=== PATIENT | female | born 1950 | race Two or more races ===

== ENCOUNTER 2023-10-22 03:48 | Observation (INO) | payer OTHER, SELFPAY ==
[2023-10-21 21:49] VITALS: BP 144/66
[2023-10-21 22:10] LABS: % Basophils 0.5 % (0-2); % Eosinophils 0.3 % (0-6); % Immature Granulocytes 0.3 % (0-0.5); % Lymphocytes 22.3 % (20.5-51.1); % Monocytes 6.4 % (1.7-9.3); % Neutrophils 70.2 % (42.2-75.2); Absolute Lymphocytes 1.3 10^3/uL (1.2-3.4); Absolute Monocytes 0.4 10^3/uL (0.1-0.6); Absolute Neutrophils 4.2 10^3/uL (1.4-6.5); Hematocrit 34.6 % (37.0-47.0); Hemoglobin 12.2 g/dL (12.0-16.0); Mean Corp Hgb Conc. 35.3 g/dL (33.0-37.0); Mean Corpuscular Hgb 31.5 pg (27.0-31.0); Mean Corpuscular Volume 89.4 fL (81.0-99.0); Nucleated Red Blood Cells % 0 %; Platelet Count 264 10^3/uL (130-400); Red Blood Cell Count 3.87 10^6/uL (4.20-5.40); Red Cell Dist. Width 12.7 % (11.5-14.5); White Blood Cell Count 5.9 10^3/uL (4.8-10.8)
[2023-10-21 22:25] LABS: ALT (SGPT) 15 U/L (0-35); AST (SGOT) 26 U/L (14-36); Albumin 2.9 g/dl (3.5-5.0); Alkaline Phosphatase 72 U/L (38-126); Blood Urea Nitrogen 22 mg/dl (7-17); Calcium 9.9 mg/dl (8.4-10.2); Carbon Dioxide 18 mmol/L (22-30); Chloride 104 mmol/L (98-107); Glucose 175 mg/dl (70-99); Lipase 86 U/L (23-300); Potassium 3.7 mmol/L (3.5-5.1); Sodium 133 mmol/L (135-145); Total Bilirubin 0.8 mg/dl (0.2-1.3); Total Protein 7.1 g/dl (6.3-8.2); eGFR > 60.00
[2023-10-22] VITALS (16 sets, daily range): BP systolic 120–153; BP diastolic 57–76; PULSE 65–82; BMI 26.5
--- NOTE | 2023-10-22 01:00 | ED.GENMED ---
History of Present Illness
<VASQUEZ العلي (Lenka) - Last Filed: 10/22/23 01:39>
General
Chief Complaint: Dizziness
Source: patient and family (daughter)
Exam Limitations: none
Time Seen by Provider: 10/22/23 00:57
Nursing documentation reviewed up to this point in time: agreed with
History of Present Illness
History of Present Illness:
Pt is a 73 yo [place]orese-speaking female with PMHx of vertigo (unclear cause, was managed in [facility]), HTN, and COPD who presents to the ED with constant vertigo and N/V x 1 day (onset evening of 10/19). Per daughter interpreting, pt suddenly
developed unprovoked dizziness last night, worse with movement and sitting, improved with laying. She states it feels like the world is spinning around her. The dizziness is provoked by opening her eyes and moving her head, improved with eyes
closed. She endorses balance issues and requires assistance with ambulation today. Normally, she ambulates on her own and goes on walks every morning. She took her BP last night at onset of symptoms, which showed HTN of 140s systolic, pt normally is
well-controlled with amlodipine. She took 2 amlodipine yesterday and today. Additionally, she has had nausea and NBNB emesis, vomiting every time she moves from a laying position. Admits to mild diffuse abdominal discomfort and some mild dyspnea x 1
day. Denies hearing loss, tinnitus, facial numbness, chest pain, constipation, diarrhea, changes to urinary habits, URI sx, fevers, chills. No illness in the past month. Only possible sick contacts are her children who had viral illness 3 weeks ago.
Upon questioning, she said she had 'a few' 30 minute episodes of dizziness over the past week that resolved without intervention.
Her last episode of severe vertigo was summer 2018 in [facility], provoked by gardening. She is unsure what the ultimate diagnosis was. She was treated with 'some pills and a few shots'.
Past History
<KristyVASQUEZ Mccollum (Lenka) - Last Filed: 10/22/23 01:39>
Past History
ED Past Medical History: HTN and Other (hx of vertigo 2019 (when in - unsure of official diagnosis))
Social History
Living: with family
Phy Exam
<VASQUEZ العلي (Lenka) - Last Filed: 10/22/23 01:39>
General Physical Exam
General Presentation: moderate distress
General age: appears stated age
General Skin: warm and dry
General Habitus: normal and elderly
General Mental: alert
General Hydration: appears well hydrated
ENT Exam
ENT Exam: EOMI and TM's normal
Eye Exam
Eye Exam: PERRL and EOMI (no nystagmus)
Cardiovascular Exam
Cardiovascular Exam: regular rate/rhythm
Pulmonary Exam
Pulmonary Exam: lungs clear and no respiratory distress
Neurological Exam
Neurological Exam: alert and other ([id number] testing intact)
Course
<VASQUEZ العلي (Lenka) - Last Filed: 10/22/23 01:39>
Orders/Labs/Results
Orders:
Orders
10/21/23 21:54
EKG [Electrocardiogram (*1)] Urgent
Reason for Study: Vertigo / Dizzy
EKG- Treatment ONCE
10/21/23 22:05
CBC/With Diff [Complete Blood Count/With Diff] Urgent
CMP [Comprehensive Metabolic Panel] Urgent
Lipase Urgent
10/22/23 00:[address] [CT Head W/o Iv Contrast] Urgent
Comment:
Reason For Exam: dizziness
10/22/23 01:34
0.9% Sodium Chloride 500 ml [Nss] 500 ml IV BOLUS
Dexamethasone Sod Phosphate [Decadron] 10 mg IV NOW STA
Ondansetron Injectable [Zofran] 4 mg IV NOW STA
diazePAM [Valium Injection] 2 mg IV NOW STA
Abnormal Lab Results
10/21/23
22:05
RBC 3.87 L 10^6/uL
(4.20-5.40)
Hct 34.6 L %
(37.0-47.0)
MCH 31.5 H pg
(27.0-31.0)
Sodium 133 L mmol/L
(135-145)
Carbon Dioxide 18 L mmol/L
(22-30)
BUN 22 H mg/dl
(7-17)
Glucose 175 H mg/dl
(70-99)
Albumin 2.9 L g/dl
(3.5-5.0)
10/21/23 22:05
10/21/23 22:05
Vital Signs
Initial and Last Documented VS:
Initial Vital Signs
Temp Pulse Resp BP Pulse Ox
97.9 F 67 18 144/66 99
10/21/23 21:49 10/21/23 21:49 10/21/23 21:49 10/21/23 21:49 10/21/23 21:49
Last Documented Vital Signs
Temp Pulse Resp BP Pulse Ox
97.9 F 67 18 120/57 99
10/21/23 21:49 10/22/23 02:00 10/22/23 02:00 10/22/23 02:00 10/22/23 02:00
<Sukhwinder Montano, DO - Last Filed: 10/22/23 02:45>
Orders/Labs/Results
Orders:
Orders
10/21/23 21:54
EKG [Electrocardiogram (*1)] Urgent
Reason for Study: Vertigo / Dizzy
EKG- Treatment ONCE
10/21/23 22:05
CBC/With Diff [Complete Blood Count/With Diff] Urgent
CMP [Comprehensive Metabolic Panel] Urgent
Lipase Urgent
10/22/23 00:[address] [CT Head W/o Iv Contrast] Urgent
Comment:
Reason For Exam: dizziness
10/22/23 01:34
0.9% Sodium Chloride 500 ml [Nss] 500 ml IV BOLUS
Dexamethasone Sod Phosphate [Decadron] 10 mg IV NOW STA
Ondansetron Injectable [Zofran] 4 mg IV NOW STA
diazePAM [Valium Injection] 2 mg IV NOW STA
Abnormal Lab Results
10/21/23
22:05
RBC 3.87 L 10^6/uL
(4.20-5.40)
Hct 34.6 L %
(37.0-47.0)
MCH 31.5 H pg
(27.0-31.0)
Sodium 133 L mmol/L
(135-145)
Carbon Dioxide 18 L mmol/L
(22-30)
BUN 22 H mg/dl
(7-17)
Glucose 175 H mg/dl
(70-99)
Albumin 2.9 L g/dl
(3.5-5.0)
10/21/23 22:05
10/21/23 22:05
Vital Signs
Initial and Last Documented VS:
Initial Vital Signs
Temp Pulse Resp BP Pulse Ox
97.9 F 67 18 144/66 99
10/21/23 21:49 10/21/23 21:49 10/21/23 21:49 10/21/23 21:49 10/21/23 21:49
Last Documented Vital Signs
Temp Pulse Resp BP Pulse Ox
97.9 F 67 18 120/57 99
10/21/23 21:49 10/22/23 02:00 10/22/23 02:00 10/22/23 02:00 10/22/23 02:00
<Kristy Fernandez) VASQUEZ Salgado - Last Filed: 10/22/23 01:39>
MDM/Problems Addressed
Differential Diagnosis Includes:
DDx: labyrinthitis vs posterior stroke vs BPPV
Given pts symptoms of vertigo (world spinning around her), N/V with any movement, imbalance x over 24 hours, there is some concern for posterior stroke. Finger to nose testing is normal. No known viral illness, but hx of recent exposure 3 weeks ago,
so labyrinthitis could be more likely.
CT head - pending
Will plan to give valium and zofran and reassess for symptoms.
Chronic conditions affecting care: HTN
<Kristy Fernandez) VASQUEZ Salgado - Last Filed: 10/22/23 01:39>
*Critical Care Note
Total Time (30-74mins, 75-104mins- exclusive of procedures): Not Applicable
ED Attending Note
<VASQUEZ العلي (Lenka) - Last Filed: 10/22/23 01:39>
-
Portions of this chart may have been created with voice recognition software.� Occasional wrong word or��sound alike� substitutions may have occurred due to the inherent limitations of voice recognition software.
<Sukhwinder Montano DO - Last Filed: 10/22/23 02:45>
ED Attending Note
Patient seen and examined by attending physician: Yes
I performed the substantive portion of visit, reviewed & personally made and approve the management plan that is documented in note by myself or PORSCHE.: Yes
I performed a history and physical exam of patient and discussed management with resident, I reviewed resident's note and agree with documented findings and plan of care.: Yes
ED Attending Note:
HPI: Patient presents with concerns for vertigo onset >24hrs ago. Worse w/ movement and assoc'd w/ nausea. BP was high for her at 147. She is compliant w/ Amlodipine.
EXAM:
GENERAL: The patient is laying supine on the stretcher with sheets over her face preferring not to open her eyes, she is in mild to moderate distress
HEENT: Moist oral mucosa, there is no nystagmus
CARDIOVASCULAR: No murmurs, normal heart rate, regular rhythm, No chest wall tenderness
PULMONARY: No respiratory distress, breath sounds are clear and equal
ABDOMEN: Soft with no peritoneal signs, no tenderness
NEUROLOGIC: Good strength all extremities, no coordination deficits, she has normal eeptse-it-xexa testing
PSYCHIATRIC: Appropriate mental status, normal insight and judgement
EXTREMITIES: Nontender, no edema, moves all extremities equally
SKIN: No rash, no lesions
TIME OF INITIAL ENCOUNTER: 1:30 AM
NUMBER AND COMPLEXITY OF PROBLEMS ADDRESSED AT THE ENCOUNTER
� Chronic conditions affecting care: Vertigo, high blood pressure
� Acute Exacerbation and/or Progression of Chronic Illness: This is an acute problem
� Differential Diagnosis includes: Positional vertigo, posterior stroke, labyrinthitis
AMOUNT AND/OR COMPLEXITY OF DATA TO BE REVIEWED AND ANALYZED
� I performed an independent evaluation of and my interpretation is:
EKG: Sinus 59, normal axis, nonspecific ST abnormality
CT:
X-rays:
Laboratory Studies: CBC unremarkable, bicarb slightly low at 18
Other:
� Review of other/old records: No old records available for review in [facility]
� Clinical information was obtained by an independent historian: I spoke to daughter at bedside
� Prescriptions/Medications Considered but not given:
� Further testing considered but not performed:
RISK OF COMPLICATIONS AND/OR MORBIDITY OR MORTALITY OF PATIENT MANAGEMENT
� Social determinants of health affecting care: Lives at home
� Discussion with other providers: Dr. Taylor, hospitalist for admission at 2:45 AM.
� Escalation of care including admission/observation vs risk of discharge considered: The patient was given IV Decadron, IV Valium, IV fluids, and Zofran. There has been some improvement but she still has rather debilitating
symptoms. Her symptoms worsen with head position. Relatively low suspicion for posterior stroke however given her age with ongoing symptoms with only minimal improvement we will plan keeping patient in the hospital for further evaluation.
Discharge Plan
Departure
Patient Disposition: Admit
Date of Disposition: 10/22/23
Time of Disposition: 02:44
Presentation/result/management discussed w/ accepting MD/DO: Hospitalist
Discharge Problem:
Vertigo
Prescriptions:
No Action
amlodipine
Referrals:
Clyde Dacosta MD [Family Provider] -
Interventions
Interventions:
*Risk Screen - Suicide Last Done: 10/22/23 00:44
*General Assessment Last Done: 10/22/23 00:43
*Neglect/Abuse Screening Last Done: 10/22/23 00:43
ED- Fall Risk Assessment Last Done: 10/22/23 00:45
*ED COVID-19 Vaccine History Last Done: 10/22/23 00:43
ED- Neurological Assessment Last Done: 10/22/23 00:45
ED- Cardiac Assessment Last Done: 10/22/23 00:45
ED Swallowing Screen Last Done: 10/22/23 00:45
Discharge Date and Time
Print Language: Palestinian
[2023-10-22] MEDS: VALIUM INJECTION 2 MG IV (01:49)
[2023-10-22] MEDS: NSS 500 IV (01:49)
[2023-10-22] MEDS: ZOFRAN 4 MG IV (01:49)
[2023-10-22] MEDS: DECADRON 10 MG IV (01:50)
--- NOTE | 2023-10-22 03:36 | HPS.HSE ---
Family Physician
-
Family Physician: Clyde Dacosta MD
Chief Complaint
-
Dizziness
History of Present Illness
Patient is a 73y F with PMH significant for hypertension, DM-II and COPD who presents to ED complaining of dizziness and N/V. History obtained from patient and the family with family serving as salt cutter when needed. Patient states she was
feeling well until Saturday when she developed sudden onset of dizziness / room spinning sensation. This was accompanied by N/V x multiple episodes of non-bloody, bilious emesis.
Patient's symptoms have persisted unchanged since that time and she presented to the ED for further evaluation.
In the ED, patient has had little relief despite antiemetics, Valium, etc.
Patient reports similar episode about 5 years ago in [facility]. She was treated with medications at that time and her symptoms resolved over a period of several weeks.
Medical History
Past Medical History
Past Medical History: Reports Other
Additional Past Medical History:
Hypertension
DM-II
Dyslipidemia
COPD
Vertigo
Past Surgical History: Reports Other
Additional Past Surgical History:
RODRI
Hernia Repair
Uterine Prolapse Surgery
Social History
Tobacco: Non-smoker
Alcohol: None
Drug: None
Family History
Family History: Not pertinent
Allergies / Home Medications
Allergies reflects when Allergies were last updated in [employer].
Home Medications with original date entered in [facility]
Allergy/Medication List:
Allergies
Allergy/AdvReac Type Severity Reaction Status Date / Time
No Known Allergies Allergy Verified 10/21/23 21:53
Home Medications
albuterol sulfate 90 mcg/actuation aerosol inhaler 2 puff inhalation Q6H PRN SOB 10/22/23
amlodipine 5 mg tablet 5 mg PO DAILY 10/22/23
metformin 500 mg tablet 500 mg PO DAILY 10/22/23
Review of Systems
-
History Source: Patient and Family
A 12 point ROS was completed and negative except as noted: Yes
Constitutional: Reports Fatigue; Denies Fever or Chills
EENT: Denies Sore Throat
Respiratory: Denies Cough or Trouble Breathing
Cardiac: Denies Chest Pain or Palpitations
Abdomen/GI: Reports Nausea and Vomiting; Denies Abdominal Pain, Diarrhea, Bloody Stools or Black Stools
: Denies Dysuria or Frequency
Musculoskeletal: Denies Joint Pain or Edema
Neurological: Reports Dizzy and Headache; Denies Weakness or Numbness
Psych: Denies Depression or Anxiety
Physical Exam
Vital Signs
Vital Signs
Temp Pulse Resp BP Pulse Ox
97.9 F 64 18 129/59 98
10/21/23 21:49 10/22/23 03:00 10/22/23 03:00 10/22/23 03:00 10/22/23 03:00
Physical Exam
General: Other (73y F in mild distress due to dizziness.)
HEENT: Moist mucous membranes and Other (Pos nystagmus (? torsional). Patient has trouble tolerating eyes being open.)
Respiratory: Clear; No Wheezes, Rales or Rhonchi
Cardiac: S1/S2 and Regular Rhythm; No Murmur
GI: Soft, Non Tender, Non Distended and Normal Bowel Sounds
Musculoskeletal: No Clubbing, No Cyanosis and No Edema
Neuro: AO x 3 and Other (No limb weakness / sensory deficits.)
Laboratory Results
-
10/21/23 22:05
10/21/23 22:05
Laboratory Results
Total Bilirubin 0.8 mg/dl (0.2-1.3) 10/21/23 22:05
AST 26 U/L (14-36) 10/21/23 22:05
ALT 15 U/L (0-35) 10/21/23 22:05
Alkaline Phosphatase 72 U/L (38-126) 10/21/23 22:05
Lipase 86 U/L (23-300) 10/21/23 22:05
Impression/Plan
-
A/P: Patient is a 73y F with PMH significant for HTN, DM-II and prior episode of vertiginous symptoms who presents to ED complaining of dizziness x 24 hours.
Vertigo
- Observe overnight for further evaluation and treatment.
- Suspect BPPV / Meniere's given prior history of the same.
- Continue supportive care including IVFs, antiemetics, meclizine, etc.
- PT / Vestibular therapy evaluation in the AM.
- Follow for any new / worsening symptoms.
- CT head unremarkable in the ED.
- Consider MRI if symptoms worsen or persist.
Benign Hypertension
- Stable. Continue amlodipine with holding parameters.
DM-II
- Stable. Hold metformin acutely.
- Follow glucose and cover with SSI if needed.
- Update A1C.
COPD
- No prior smoking history.
- Daughter describes reactive airways - typically after acute illness / bronchitis / etc.
- Not on maintenance medications.
- Continue albuterol PRN.
DVT Prophylaxis: SCDs
Code Status: Full
[2023-10-22] MEDS: ANTIVERT 25 MG PO ×2 (04:13→09:59)
--- NOTE | 2023-10-22 05:30 | PTCARENOTE ---
no delay received. aaox3. daughter at [facility]. vss. nsr. stafford @100cc/hr. call hebert in reach. pt updated on plan of care. will monitor.
[2023-10-22] MEDS: NSS 1000 IV (06:15)
[2023-10-22 06:31] LABS: Hemoglobin 12.1 g/dL (12.0-16.0); Mean Corp Hgb Conc. 34.6 g/dL (33.0-37.0); Mean Corpuscular Hgb 31.4 pg (27.0-31.0); Mean Corpuscular Volume 90.9 fL (81.0-99.0); Mean Platelet Volume 10.6 fL (7.4-10.4); Platelet Count 232 10^3/uL (130-400); Red Blood Cell Count 3.85 10^6/uL (4.20-5.40); Red Cell Dist. Width 12.8 % (11.5-14.5); White Blood Cell Count 5.8 10^3/uL (4.8-10.8)
[2023-10-22 06:59] LABS: Blood Urea Nitrogen 22 mg/dl (7-17); Calcium 9.5 mg/dl (8.4-10.2); Carbon Dioxide 22 mmol/L (22-30); Chloride 106 mmol/L (98-107); Estimated Creatinine Clearance 60 ml/min; Glucose 153 mg/dl (70-99); HDL Cholesterol 92 mg/dl; LDL Cholesterol, Calculated 181 mg/dl; Potassium 4.1 mmol/L (3.5-5.1); Sodium 136 mmol/L (135-145); Total Cholesterol 286 mg/dl (50-199); Triglyceride 66 mg/dl (10-149); Very Low Density Lipoprotein 13 mg/dl (0-30); eGFR > 60.00
[2023-10-22 07:53] LABS: Free T4 1.04 ng/dl (0.78-2.19)
[2023-10-22 08:46] LABS: Glucose - Point of Care 142 mg/dl (70-99)
[2023-10-22] MEDS: LOW STRENGTH ASPIRIN 81 MG PO (08:54)
[2023-10-22] MEDS: NORVASC 5 MG PO (08:54)
[2023-10-22 12:23] LABS: Glucose - Point of Care 162 mg/dl (70-99)
--- NOTE | 2023-10-22 16:29 | CM ---
CM met with pt and her son-in-law at bedside
Pt lives with her daughter, son-in-law and 2 grandchildren
Independent, no devices needed
DME - none
SNF - no past hx
HH - no past Hx
PCP - Dr Kathy Dacosta
Pharm - [facility]
CM will follow for d/c needs
Plan - anticipate home no needs
[2023-10-22 16:49] LABS: Glucose - Point of Care 119 mg/dl (70-99)
--- NOTE | 2023-10-22 18:03 | W.PN.HOSP.TC ---
Today's Communication/Plan
-
See plan
Assessment / Plan
Assessment / Plan
Impression:
Persistent vertigo with nausea and vomiting.
Essential hypertension
Type 2 diabetes [id number].
Plan:
Persistent vertigo with nausea and without vomiting
Patient denies any focal symptoms prior to presentation other than mild problem with swallowing, possibly attributed to nausea.
Noted physical/vestibular therapy evaluation suggestive of peripheral vertigo/vestibular neuritis
On my examination patient has been positional vertigo
Preserved vestibular ocular reflex with minimal horizontal nystagmus to the right and negative skew deviation.
Differential diagnosis remains peripheral vertigo/vestibular neuritis (acute onset, prior episodes which were self-limited) versus central including brainstem CVA.
Given risk factors including diabetes and hypertension as well as persistent symptoms, oral order further evaluation with MRI of the brain (CT scan of the head with no acute abnormalities).
Continue symptomatic treatment including meclizine, antiemetics
Continue physical/vestibular therapy.
If MRI is negative for central cause, consider trial of systemic steroids for vestibular neuritis
Consider neurology evaluation if persistent symptoms
Initiated on aspirin
Essential hypertension
Continue amlodipine
Goal normotension
Type 2 diabetes.
A1c 6.0.
Hold metformin acutely.
Continue insulin sliding scale with basal bolus protocol.
Anticipated Discharge: 24 - 48 hours
Subjective/Interval History
-
Date of Service: October 22, 2023
Objective Data
-
Labs:
Laboratory Results
10/22/23
05:39
WBC 5.8
Hgb 12.1
Hct 35.0 L
Plt Count 232
Sodium 136
Potassium 4.1
Chloride 106
Carbon Dioxide 22
BUN 22 H
Creatinine 0.7
Glucose 153 H
Calcium 9.5
Vital Signs:
Vital Signs
Temp Pulse Resp BP Pulse Ox
98.3 F 68 18 140/59 97
10/22/23 15:23 10/22/23 15:00 10/22/23 15:00 10/22/23 15:00 10/22/23 15:00
I&O
10/21/23 10/22/23 10/23/23
06:59 06:59 06:59
Intake Total 800 / 800
Balance 800 / 800
Physical Exam
-
General: Well Developed and No Apparent Distress
HEENT: Normocephalic, Atraumatic and Moist Mucous Membranes
Respiratory: Clear to Auscultation
Cardiac: Regular Rhythm and S1/S2; Negative Murmur, Rub or Gallop
GI: Soft, Nontender, Nondistended and Normal Bowel Sounds; Negative Organomegaly
Rectal: Deferred by Provider
Musculoskeletal: No Clubbing, No Cyanosis and No Edema
Skin: Negative Rash
Neuro: Nonfocal/Grossly Intact
[2023-10-22 21:14] LABS: Glucose - Point of Care 110 mg/dl (70-99)
--- NOTE | 2023-10-22 22:30 | PTCARENOTE ---
@2200;Pt shook her head side to side x2 and stated ,'No dizzy',while sitting up in bed.
[2023-10-23 03:35] VITALS: BP 114/50
[2023-10-23 03:37] VITALS: BP 114/50; BP 123/62; BP 129/73; PULSE 70; PULSE 77; PULSE 83
--- NOTE | 2023-10-23 04:00 | PTCARENOTE ---
@5160; Pt was assisted to BR and back to bed.Pt stated to PCT,'Little dizzy'. Pt declined Antivert and stated,'I'm ok'.
[2023-10-23 07:00] VITALS: BP 135/65
[2023-10-23] MEDS: LOW STRENGTH ASPIRIN 81 MG PO (08:03)
[2023-10-23] MEDS: NORVASC 5 MG PO (08:03)
[2023-10-23 08:07] LABS: Glucose - Point of Care 86 mg/dl (70-99)
[2023-10-23 11:00] VITALS: BP 124/53; BP 131/64; BP 133/66; PULSE 67; PULSE 69; PULSE 75
[2023-10-23 12:03] LABS: Glucose - Point of Care 90 mg/dl (70-99)
--- NOTE | 2023-10-23 12:48 | W.DS.TRANS ---
DC Summary - Information Technology Manager
-
Discharge Instructions:
Discharge Diagnosis/Procedures Vestibular neuritis
Diet Diabetic, Carb Controlled
Instructions:
Stand-Alone Forms:
Changes to Home Medications: Yes
Discharge Medications:
DC Medications w/original date entered in [employer]
albuterol sulfate 90 mcg/actuation aerosol inhaler 2 puff inhalation Q6H PRN SOB 10/22/23
amlodipine 5 mg tablet 5 mg PO DAILY 10/22/23
metformin 500 mg tablet 500 mg PO DAILY 10/22/23
aspirin 81 mg chewable tablet 81 mg PO DAILY #30 tabs 10/23/23
meclizine 25 mg tablet 25 mg PO Q8HPRN PRN Dizziness #30 tabs 10/23/23
pantoprazole 20 mg tablet,delayed release 20 mg PO DAILY #30 tabs 10/23/23
prednisone 10 mg tablet 10 mg PO DIRECTED #30 tabs 10/23/23
Home Medication Changes
Prednisone taper and ASA added
Pending Results: No
[2023-10-23] MEDS: PROTONIX 20 MG PO (13:08)
[2023-10-23] MEDS: DELTASONE 40 MG PO (13:08)
[2023-10-23] MEDS: ANTIVERT 25 MG PO (13:17)
[2023-10-23 15:04] VITALS: BP 141/76
== END 2023-10-23 15:17 | disposition home or self-care (01) ==
LOC: 3 WEST ACU 03:48
PROVIDERS: Emergency Medicine; ADMITTING PHYSICIAN Hospitalist; ATTENDING PHYSICIAN Internal Medicine; EMERGENCY PHYSICIAN Emergency Medicine; FAMILY PHYSICIAN Family Medicine
DX: H81.20 Vestibular neuronitis, unspecified ear (principal); I10 Essential (primary) hypertension; J44.9 Chronic obstructive pulmonary disease, unspecified; R11.2 Nausea with vomiting, unspecified; R10.9 Unspecified abdominal pain; R06.00 Dyspnea, unspecified; R11.14 Bilious vomiting; E11.9 Type 2 diabetes mellitus without complications; E78.5 Hyperlipidemia, unspecified; R00.1 Bradycardia, unspecified; I67.82 Cerebral ischemia; Z79.82 Long term (current) use of aspirin; Z79.84 Long term (current) use of oral hypoglycemic drugs; Z60.3 Acculturation difficulty
CPT/HCPCS: 70450; 70551; 80048; 80053; 80061; 82962; 83036; 83690; 84439; 84443; 85025; 85027; 93005; 96361; 96374; 96375; 97162; 97166; 99285; G0378